=== PATIENT | female | born 1950 | race Caucasian/White ===

== ENCOUNTER 2018-02-20 20:11 | Outpatient (CLI) | payer MEDICARE, OTHER ==
--- NOTE | 2018-02-20 21:11 | CT Report ---
Reason: Pylonephritis Procedure Date: 02/20/2018 Accession Number: [id number] / [id number] Procedure: CT - KUB CPT Code: FULL RESULT: EXAM: CT ABDOMEN AND PELVIS (CT KUB) EXAM DATE: 02/20/2018 08:32 PM. CLINICAL HISTORY: Pyelonephritis. COMPARISONS: None available. TECHNIQUE: Routine axial helical CT imaging was performed through the abdomen and pelvis without IV contrast. Reconstructions: Coronal and sagittal. In accordance with CT protocol optimization, one or more of the following dose reduction techniques were utilized for this exam: automated exposure control, adjustment of mA and/or KV based on patient size, or use of iterative reconstructive technique. FINDINGS: Lung Bases: Trace streaky scarring/atelectasis. Right Kidney/Ureter: No stones, hydronephrosis, or hydroureter. Trace perinephric fat stranding, nonspecific. Left Kidney/Ureter: No stones, hydronephrosis, or hydroureter. Trace perinephric fat stranding, nonspecific. Other Solid Organs: Noncontrast images of the solid organs are grossly unremarkable. Gallbladder/Bile Ducts: The gallbladder is surgically absent. Peritoneal Cavity: Small hiatal hernia. 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 Nonobstructive bowel gas pattern. Colonic diverticulosis without evidence of acute diverticulitis. The appendix is not visualized. No free air or free fluid. Pelvic Organs: The urinary bladder is essentially decompressed. The uterus is surgically absent. Vasculature: Calcified plaques throughout the abdominal aorta and iliac arteries without evidence of aneurysm. Other: Sclerotic focus in the proximal right femur likely a benign enostosis. The bones are osteopenic. There are mild to moderate multilevel degenerative changes of the lumbar spine. Near complete disk space loss at L5-S1. There is grade 1 anterolisthesis of L4 and L5 measuring 4-5 mm. IMPRESSION: No evidence of hydronephrosis or nephrolithiasis. Additional nonacute findings described above. [facility]
== END 2018-02-20 20:12 | disposition home or self-care (01) ==
LOC: DI 20:11
PROVIDERS: ATTEND Specialist
DX: N12 Tubulo-interstitial nephritis, not specified as acute or chronic (principal)
CPT/HCPCS: 74176

== ENCOUNTER 2018-02-22 11:06 | Outpatient (CLI) | payer MEDICARE, OTHER ==
[2018-02-22 11:41] LABS: BASOPHILS % (AUTO) 0.4 %; HGB - HEMOGLOBIN 14.8 g/dL (12.0-16.0); LYMPHOCYTES # (AUTO) 1.2 10^3/uL (1.5-3.5); MEAN CORPUSCULAR HEMOGLOBIN 30.8 pg (27.0-31.0); MEAN CORPUSCULAR HGB CONC 34.2 g/dL (32.0-36.0); MEAN CORPUSCULAR VOLUME 89.9 fL (81.0-99.0); MEAN PLATELET VOLUME 7.9 fL (7.9-10.8); MONOCYTES # (AUTO) 0.7 10^3/uL (0.0-1.0); MONOCYTES % (AUTO) 8.4 %; NEUTROPHILS # (AUTO) 6.7 10^3/uL (1.5-6.6); NEUTROPHILS % (AUTO) 77.2 %; PLT - PLATELET COUNT 257 10^3/uL (130-450); RED CELL DISTRIBUTION WIDTH 13.8 % (12.0-15.0); WHITE BLOOD COUNT 8.7 x10^3/uL (4.8-10.8)
[2018-02-22 11:51] LABS: ALBUMIN 4.2 g/dL (3.2-5.5); ALBUMIN/GLOBULIN RATIO 1.3 (1.0-2.2); BILIRUBIN,TOTAL 1.3 mg/dL (0.2-1.0); CREATININE 0.9 mg/dL (0.4-1.0); TOTAL PROTEIN 7.4 g/dL (6.7-8.2)
== END 2018-02-22 11:07 | disposition home or self-care (01) ==
LOC: LAB 11:06
PROVIDERS: ATTEND Specialist
DX: R68.89 Other general symptoms and signs (principal); R79.89 Other specified abnormal findings of blood chemistry
CPT/HCPCS: 36415; 80053; 85025